=== PATIENT | male | born 1965 | race Caucasian/White ===

== ENCOUNTER 2018-10-10 08:29 | Day surgery (SDC) | payer BC ==
[~2018-10-10 08:29] MED LIST: Lactated Ringers 1,000 ML IV SCH; Lidocaine 1% 6 ML ONE; Lidocaine 1%/Sod Bicarbonate in NS 8.4% 1 ML Syringe IDERM PRN; Propofol 200 MG/20 ML SDV ONE; Sodium Chloride 0.9% 10 ML Syringe FLUSH PRN; fentaNYL 100 MCG/2 ML SDV ONE
--- NOTE | 2018-10-10 09:05 | PCM.PREANE ---
Preanesthetic Assessment - Anesthesia/Transfusion/Family Hx Anesthesia History: Prior Anesthesia Without Reaction Family History of Anesthesia Reaction: No Transfusion History: No Prior Transfusion(s) Intubation History: Unknown - Review of Systems General: No Symptoms Pulmonary: No Symptoms (BI no CPAP/Former smoker quit:2014) Cardiovascular: No Symptoms (HTN) Gastrointestinal: No Symptoms (GERD) Neurological: No Symptoms Other: Reports: None, Diabetes (Am Blood gpfys=[phone]) - Physical Assessment NPO Status Date: 10/09/18 NPO Status Time: 05:00 Pulse: 91 O2 Sat by Pulse Oximetry: 96 Respiratory Rate: 16 Blood Pressure: 155/86 Temperature: 36.7 C Height: 1.78 m Weight: 99 kg ASA Class: 2 Mental Status: Alert & Oriented x3 Airway Class: Mallampati = 2 Dentition: Reports: Normal Dentition, Caries Thyro-Mental Finger Breadths: 3 Mouth Opening Finger Breadths: 3 ROM/Head Extension: Full Lungs: Clear to Auscultation, Normal Respiratory Effort Cardiovascular: Regular Rate, Regular Rhythm, No Murmurs - Lab Values: Laboratory Last Values POC Glucose 151 mg/dL (70-105) H 10/10/18 08:52 - Allergies Allergies/Adverse Reactions: Allergies Allergy/AdvReac Type Severity Reaction Status Date / Time meperidine HCl [From Demerol] Allergy Itching Verified 10/09/18 14:26 - Anesthesia Plan Pre-Op Medication Ordered: None - Acknowledgements Anesthesia Type Planned: MAC Pt an Appropriate Candidate for the Planned Anesthesia: Yes Alternatives and Risks of Anesthesia Discussed w Pt/Guardian: Yes Pt/Guardian Understands and Agrees with Anesthesia Plan: Yes PreAnesthesia Questionnaire - Past Health History Medical/Surgical History: Denies Medical/Surgical History HEENT History: Reports: Other (See Below) Other HEENT History: impacted cerumen Cardiovascular History: Reports: High Cholesterol Respiratory History: Reports: Sleep Apnea Gastrointestinal History: Reports: GERD, Hemorrhoids Genitourinary History: Reports: Renal Calculus [employer] History: Reports: None Other Musculoskeletal History: right clavicle fracture, shoulder weakness, left elbow pain, left bicep strain, elbow strain Neurological History: Reports: None Psychiatric History: Reports: Other (See Below) Other Psychiatric History: daytime somnolence Endocrine/Metabolic History: Reports: Diabetes, Type II Hematologic History: Reports: None Immunologic History: Reports: None Oncologic (Cancer) History: Reports: None Dermatologic History: Reports: Urticaria - Past Surgical History Head Surgeries/Procedures: Reports: None Respiratory Surgical History: Reports: None GI Surgical History: Reports: None Female Surgical History: Reports: None Male Surgical History: Reports: None Endocrine Surgical History: Reports: None Neurological Surgical History: Reports: None Musculoskeletal Surgical History: Reports: Other (See Below) Other Musculoskeletal Surgeries/Procedures:: ORIF clavicle fracture Oncologic Surgical History: Reports: None Dermatological Surgical History: Reports: None - SUBSTANCE USE Smoking Status *Q: Former Smoker Recreational Drug Use History: No - HOME MEDS Home Medications: Home Meds Omeprazole [Prilosec] 1 tab PO DAILY 04/19/15 [History] atorvaSTATin [Lipitor] 40 mg PO DAILY 04/27/15 [History] Dulaglutide [Trulicity] 1.5 mg SQ TU 11/02/15 [History] Aspirin [Coke Aspirin] 81 mg PO DAILY 10/09/18 [History] Fish Oil/Horton-3 Fatty Acids [Fish Oil 1,000 MG] 1 gm PO DAILY 10/09/18 [History ] Lisinopril 2.5 mg PO DAILY 10/09/18 [History] Multivitamin [Poly-Vitamin] 1 tab PO DAILY 10/09/18 [History] Nystatin/Triamcin [Nystatin-Triamcinolone Cream] 1 dose TOP BID PRN 10/09/18 [ History] metFORMIN HCl [Metformin HCl ER] 1,000 mg PO DAILY 10/09/18 [History] - CURRENT (IN HOUSE) MEDS Current Meds: Current Medications Lactated Ringer's (Ringers, Lactated) 1,000 mls @ 125 mls/hr IV ASDIRECTED SANDEEP Stop: 10/10/18 23:00 Lidocaine/Sodium Bicarbonate (Buffered Lidocaine 1% In Ns 8.4%) 0.25 ml IDERM ONETIME PRN PRN Reason: Prior to IV Start Stop: 10/10/18 18:00 Sodium Chloride (Saline Flush) 10 ml FLUSH ASDIRECTED PRN PRN Reason: Keep Vein Open Stop: 10/10/18 18:00 Discontinued Medications Fentanyl (Sublimaze) Confirm Administered Dose 100 mcg .ROUTE .STK-MED ONE Stop: 10/10/18 07:06 Lidocaine HCl (Xylocaine-Mpf 1%) Confirm Administered Dose 6 mls @ as directed .ROUTE .STK-MED ONE Stop: 10/10/18 07:05 Propofol (Diprivan 20 Ml) Confirm Administered Dose 200 mg .ROUTE .STK-MED ONE Stop: 10/10/18 07:06
--- NOTE | 2018-10-10 09:33 | PCM48HPAN ---
Post Anesthesia Note - EVALUATION WITHIN 48HRS OF ANESTHETIC Vital Signs in Normal Range: Yes Patient Participated in Evaluation: Yes Respiratory Function Stable: Yes Airway Patent: Yes Cardiovascular Function Stable: Yes Hydration Status Stable: Yes Pain Control Satisfactory: Yes Nausea and Vomiting Control Satisfactory: Yes Mental Status Recovered: Yes
[2018-10-10 10:06] VITALS: BP 135/82
--- NOTE | 2018-10-10 11:23 | OR ---
DATE OF OPERATION: 10/10/2018 SURGEON: Olman Byrd MD PREOPERATIVE DIAGNOSIS: Screening colonoscopy. POSTOPERATIVE DIAGNOSIS: Screening colonoscopy. OPERATION PERFORMED: Total colonoscopy. ANESTHESIA: MAC. SPECIMEN: None. OPERATIVE FINDINGS: Normal colonoscopy except for an external hemorrhoid. RECOMMENDATION: Followup screening colonoscopy 10 years or sooner for symptoms. INDICATION FOR PROCEDURE: This 53-year-old male has not had a prior colonoscopy. He presents for screening. DESCRIPTION OF PROCEDURE: After adequate preparation, a colonoscope was inserted into the rectum and advanced all the way to the cecum. Confirmation of the cecum was made by visualization of the ileocecal valve and palpation in the right lower quadrant. A photograph of the ileocecal valve was taken. The bowel prep was very good. On withdrawal of the scope, no abnormalities were noted. Anal and rectal examination was also normal. Air was suctioned from the colon and the scope removed. ESTIMATED BLOOD LOSS: MMODAL /[id number]
== END 2018-10-10 10:20 | disposition home or self-care (01) ==
LOC: JD.SDS 08:29
PROVIDERS: ATTEND Surgery
DX: Z12.11 Encounter for screening for malignant neoplasm of colon (principal); K64.4 Residual hemorrhoidal skin tags; K21.9 Gastro-esophageal reflux disease without esophagitis; I10 Essential (primary) hypertension; E11.9 Type 2 diabetes mellitus without complications; E78.00 Pure hypercholesterolemia, unspecified; G47.33 Obstructive sleep apnea (adult) (pediatric); Z88.5 Allergy status to narcotic agent; Z87.891 Personal history of nicotine dependence; Z79.82 Long term (current) use of aspirin; Z79.84 Long term (current) use of oral hypoglycemic drugs; Z79.899 Other long term (current) drug therapy
CPT/HCPCS: 45378; 82962; J2001; J2704; J3010; J7120; 00812